=== PATIENT | female | born 1945 | race Caucasian/White ===

== ENCOUNTER → 2018-12-20 11:33 | Outpatient (CLI) | payer MEDICARE, MEDICAID, SELFPAY ==
--- NOTE | 2018-12-20 | DI.US.S_ITS ---
PROCEDURE: US ABD AORTA ANEURYSM SCREEN INDICATIONS: BASELINE SCREENING TECHNIQUE: Real time scanning was performed of the aorta and iliac arteries, with image documentation. COMPARISON: None. FINDINGS: Aorta: Proximal aortic diameter measures 2.4 cm. Mid-aorta measures 1.9 cm. Distal aortic diameter is 1.6 cm. Iliac arteries: Right common iliac artery measures 0.9 cm. Left common iliac artery measures 1.0 cm. IMPRESSION: No abdominal aortic or proximal common iliac artery aneurysm. Dictated by: José Miguel TEMPLE Interpreted: Patricia Ellison MD on 12/20/2018 at 13:11 Approved by: Patricia Ellison M.D. on 12/20/2018 at 16:59
== END ==
PROVIDERS: PCP Nurse Practitioner Family; Visit Provider Nurse Practitioner Family
DX: Z13.6 Encounter for screening for cardiovascular disorders (principal); R29.6 Repeated falls
CPT/HCPCS: 76706; 77080

== ENCOUNTER → 2019-09-30 12:46 | Outpatient (CLI) | payer MEDICARE, MEDICAID, SELFPAY ==
--- NOTE | 2019-09-30 | DI.US.S_ITS ---
PROCEDURE: US PELVIC COMPLETE INDICATIONS: PROLAPSED UTERUS, BLADDER TECHNIQUE: Real-time scanning was performed of the pelvic organs, with image documentation. Additional endovaginal scanning was necessary due to incomplete visualization of the adnexal and endometrial structures by transabdominal scanning. COMPARISON: None. FINDINGS: Transabdominal scanning: Limited scanning through the kidneys shows no hydronephrosis. No pathologic free abdominal or pelvic fluid. Endovaginal scanning: Uterus: Uterus is normal in size at 8.5 x 5.8 x 9.1 cm. The endometrium measures up to 17 mm in combined thickness. There is a bicornuate uterus noted. There is a right anterior intramural fibroid which measures 4.1 x 3.7 x 3.8 cm, a midline anterior/posterior intramural fibroid which measures 2.4 x 2.1 x 2.4 cm, and a right posterior intramural fibroid which measures 3.8 x 3.1 x 3.8 cm. Ovaries: The ovaries are not visualized. IMPRESSION: 1. Fibroid uterus as above. 2. Questionable thickening of the endometrium; however there is marked distortion of the endometrium given the uterine fibroids. If further characterization is warranted, gynecologic protocol MRI could be used. Endometrial thickening can be associated with neoplasm, and cannot be excluded in this case. Further imaging or endometrial biopsy could be considered to further characterize findings. 3. Nonvisualization of the ovaries. Dictated by: Mary Santamaria M.D. on 09/30/2019 at 17:40 Approved by: Mary Santamaria M.D. on 09/30/2019 at 17:46
== END ==
PROVIDERS: PCP Nurse Practitioner Family; Visit Provider Nurse Practitioner Family
DX: N81.4 Uterovaginal prolapse, unspecified (principal); D25.1 Intramural leiomyoma of uterus; Q51.3 Bicornate uterus
CPT/HCPCS: 76830; 76856

== ENCOUNTER 2020-10-03 17:20 | Emergency (ER) | payer MEDICARE, MEDICAID, SELFPAY ==
[2020-10-03 17:27] VITALS: BP 187/88; PULSE 71; RESP 20; TEMP 36.8; O2SAT 98
[2020-10-03 17:39] VITALS: PULSE 78; O2SAT 96
[2020-10-03 18:00] VITALS: BP 129/66; PULSE 73; RESP 16; O2SAT 97
--- NOTE | 2020-10-03 18:12 | ED.EXTPRO ---
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 She states that she was standing at the sink doing dishes when the pain abruptly started. She describes going for a walk earlier in the day and no obvious trauma or incident that set off the pain. She describes no recent fevers, chest pain, dyspnea, coughing, abdominal pain, vomiting, nausea or diarrhea. Review of Systems Review of Systems ROS Unobtainable: All systems reviewed & are unremarkable except as noted in HPI and below Patient History Medical History Protein S deficiency Social History Smoking Status: Never smoker Smoking Status: Never smoker alcohol intake frequency: 0-2 drinks per day Exam Narrative Exam Narrative: General: Alert appropriate in no acute distress Respiratory: Able to speak in full sentences, no obvious respiratory distress Skin: No obvious rashes, warm and dry Neurologic: Grossly intact no obvious asymmetries or abnormalities Psych: appropriate insight and affect, cooperative Spine: No point tenderness along the lumbar spine, no rashes. She is quite tender over the right sacroiliac joint and it completely reproduces her pain when it is palpated. Initial Vital Signs Initial Vital Signs: Vital Signs Temperature 98.3 F 10/03/20 17:27 Pulse Rate 71 10/03/20 17:27 Respiratory Rate 20 10/03/20 17:27 Blood Pressure 187/88 H 10/03/20 17:27 Pulse Oximetry 98 10/03/20 17:27 Course Orders Ordered: Discontinued Medications Acetaminophen (Acetaminophen 325 Mg Tablet) 975 mg PO NOW ONE Stop: 10/03/20 18:36 Last Admin: 10/03/20 18:43 Dose: 975 mg Documented by: MMINOR Vital Signs Vital signs: Vital Signs - 8 hr 10/03/20 17:27 10/03/20 17:39 10/03/20 18:00 Temperature 98.3 F Pulse Rate 71 78 73 Respiratory Rate 20 16 Blood Pressure 187/88 H 129/66 Pulse Oximetry 98 96 97 10/03/20 18:46 Temperature Pulse Rate 74 Respiratory Rate 16 Blood Pressure 194/84 H Pulse Oximetry 98 MDM - Extremity (Nontraumatic) MDM Narrative Medical decision making narrative: 75-year-old woman concerned that she has a a recurrent DVT currently anticoagulated. No lower extremity involvement or edema. Point tenderness at her sacroiliac joint on the right. DVT is less likely. Infection is less likely. She was interested in trying only Tylenol for the pain. Reassurance is given. Encouraged her to follow-up with her primary care physician if symptoms changed. Discharge Plan Departure Patient Disposition: Home Clinical Impression: Sacro-iliac pain Instructions: DI Sacroiliac Joint Dysfunction Activity Restrictions/Additional Instructions: Thank you for coming in today The description of your pain and the tenderness directly over your sacroiliac joint does not sound like a DVT. The fact that your continuing to appropriately take her Xarelto is also quite encouraging that this is not a recurrent DVT. Treating this as an acute strain initially will be your best option. Using Tylenol to control the pain and continuing with gentle exercise including walking makes sense. Frequently when we irritated any type of joint it is worse in the 1st 1-2 days following the injury (even when we can not specifically identify the injury). This means that you may have a bit more pain tomorrow. Ice to the area might be helpful. Please pay attention to that area and if you notice any type of rash developing you need to follow-up with her primary care physician. If you are not feeling like you are beginning to improve by Sunday of this coming week. I would also recommend following up with her primary care provider. I hope you feel better Referrals: Ines Fulton ARNP [Primary Care Provider] -
[2020-10-03] MEDS: ACETAMINOPHEN 325 MG TABLET 975 MG PO (18:43)
[2020-10-03 18:46] VITALS: BP 194/84; PULSE 74; RESP 16; O2SAT 98
== END 2020-10-03 18:51 | disposition home or self-care (01) ==
PROVIDERS: Emergency Provider Emergency Medicine; PCP Nurse Practitioner Family
DX: M53.3 Sacrococcygeal disorders, not elsewhere classified (principal); D68.59 Other primary thrombophilia; I26.99 Other pulmonary embolism without acute cor pulmonale; Z79.01 Long term (current) use of anticoagulants
CPT/HCPCS: 99281; 99282

== ENCOUNTER → 2020-12-08 09:05 | Outpatient (CLI) | payer MEDICARE, MEDICAID, SELFPAY ==
--- NOTE | 2020-12-08 | DI.MG.S_ITS ---
BILATERAL DIGITAL SCREENING MAMMOGRAM 3D/2D WITH CAD WITH AUGMENTATION: 12/08/2020 CLINICAL: Baseline exam. Routine screening. No prior exams were available for comparison. The tissue of both breasts is predominantly fatty. Current study was also evaluated with a Computer Aided Detection (CAD) system. Bilateral breast implants are intact. No significant masses, calcifications, or other findings are seen in either breast. IMPRESSION: NEGATIVE There is no mammographic evidence of malignancy. A 1 year screening mammogram is recommended. This exam was interpreted at Station ID: [id number]. NOTE: For mammograms, a report in lay terms will be sent to the patient. Approximately 15% of breast malignancies will not be visualized mammographically. In the management of a palpable breast mass, a negative mammogram must not discourage biopsy of a clinically suspicious lesion. Electronically Signed By: Doreen lorenzo/janeth:12/08/2020 10:12:44 letter sent: Normal Exam ACR BI-RADS Category 1: Negative [id number]
== END ==
PROVIDERS: PCP Nurse Practitioner Family; Referring Provider Nurse Practitioner Family; Visit Provider Nurse Practitioner Family
DX: Z12.31 Encounter for screening mammogram for malignant neoplasm of breast (principal); Z13.820 Encounter for screening for osteoporosis; M85.851 Other specified disorders of bone density and structure, right thigh; Z78.0 Asymptomatic menopausal state; Z90.722 Acquired absence of ovaries, bilateral
CPT/HCPCS: 77063; 77067; 77080

== ENCOUNTER → 2021-07-07 10:55 | Outpatient (CLI) | payer MEDICARE, MEDICAID, SELFPAY ==
--- NOTE | 2021-07-07 10:56 | DI.CT.S_ITS ---
PROCEDURE: CT CHEST WO CON INDICATIONS: Other nonspecific abnormal finding of lung field TECHNIQUE: Noncontrast 5 mm thick sections acquired from the pulmonary apices to the posterior costophrenic angles. 1 mm lung window, 5 mm thick coronal and sagittal and 7 mm axial MIP reformats were then acquired. For radiation dose reduction, the following was used: automated exposure control, adjustment of mA and/or kV according to patient size. COMPARISON: Outside Facility, RG, XR CXR 2V, 04/22/2021, 8:37. FINDINGS: Image quality: Excellent. Lungs and pleura: The trachea is of normal caliber. Central and peripheral airways are mildly diffusely narrowed and demonstrate mild circumferential bronchial wall thickening. There is narrowing and probable occlusion of numerous extreme peripheral peripheral airways towards the lung bases. There are mild gravitational changes dependently along the fissures of both lungs, and posteriorly in the lower lobes. Mild septal thickening is present at both lung bases. A part solid nodule in the posteromedial left lower lobe measures 0.8 x 0.5 cm, 3/158. No other nodules or masses. No consolidations or pleural effusions. Mediastinum: Heart size is enlarged. Trace pericardial effusion or thickening. No significant coronary artery calcification. No mediastinal adenopathy by size criteria. Thoracic aorta and central pulmonary arteries are normal in size. Trace aortic arch calcification. Esophagus is normal in caliber. No hiatal hernia. Bones and chest wall: Intact breast implants. No suspicious bony lesions. No vertebral body compression fractures. No axillary or supraclavicular adenopathy by size criteria. Thyroid gland is partially imaged and the visible portion is diminutive . Abdomen: Visualized upper abdominal solid organs and bowel loops appear normal in the absence of contrast. IMPRESSION: 1. Peripheral airway narrowing and wall thickening suggesting bronchitis, potentially chronic 2. 8 mm part solid left lung nodule. 6 month follow-up chest CT is recommended for follow-up. 3. Cardiomegaly. Dictated by: Doreen Lang M.D. on 07/07/2021 at 14:37 Approved by: Doreen Lang M.D. on 07/07/2021 at 15:03
== END ==
PROVIDERS: PCP Nurse Practitioner Family; Referring Provider Family Medicine; Visit Provider Family Medicine
DX: R91.8 Other nonspecific abnormal finding of lung field (principal); I51.7 Cardiomegaly
CPT/HCPCS: 71250

== ENCOUNTER 2024-08-16 11:41 | Emergency (ER) | payer MEDICARE, SELFPAY ==
[2024-08-16] VITALS (8 sets, daily range): BP systolic 124–170; BP diastolic 63–81; PULSE 64–98; RESP 16–18; TEMP 36.6; O2SAT 92–98; BMI 27.3
--- NOTE | 2024-08-16 11:48 | EKG_ITS ---
[address] [address] Test Date: 2024-08-16 Pat Name: Miracle Osorio Department: Room: Gender: Female [employer]: ANGIE : [id number] Requested By: Order Number: [id number] Reading MD: Leonardo Ann MD Measurements Intervals [place] Rate: 69 P: 39 IA: 158 QRS: 37 QRSD: 78 T: 48 QT: 390 QTc: 417 Interpretive Statements Normal sinus rhythm with sinus arrhythmia Electronically Signed On 08-17-2024 17:06:14 PST by Leonardo Ann MD
--- NOTE | 2024-08-16 11:52 | DI.RAD.S_ITS ---
PROCEDURE: XR CHEST 1V INDICATIONS: chest pain TECHNIQUE: One view of the chest was acquired. COMPARISON: None. FINDINGS: Surgical changes and devices: None. Lungs and pleura: Minimal left basilar atelectasis and or infiltrate Mediastinum: Mediastinal contours appear normal. Heart size is normal. Bones and chest wall: No suspicious bony lesions. Overlying soft tissues appear unremarkable. IMPRESSION: Minimal left basilar atelectasis and or infiltrate Approved by: Adilson Moreira M.D. on 08/16/2024 at 12:04
[2024-08-16 12:05] LABS: Add Manual Diff / Slide Review NO; Basophils Absolute Auto 100 /uL (0-100); Basophils Percent Auto 1.1 % (0-2); Eosinophils Absolute Auto 200 /uL (0-450); Eosinophils Percent Auto 3.5 % (2-4); Hematocrit 46.3 % (36-46); Hemoglobin 15.3 g/dL (12.0-16.0); Lymphocytes Absolute Auto 1700 /uL (1100-4500); Lymphocytes Percent Auto 24.3 % (25-40); Mean Corpuscular HGB Conc 33.1 % (30-36); Mean Corpuscular Hemoglobin 30.6 PG (26-34); Mean Corpuscular Volume 92.6 fL (80-100); Monocytes Absolute Auto 600 /uL (0-900); Monocytes Percent Auto 8.6 % (3-14); Neutrophils Absolute Auto 4300 /uL (1500-7000); Neutrophils Percent Auto 62.5 % (50-75); Platelet Count 175 X10^3/uL (150-400); Red Cell Distribution Width 13.2 % (11.6-14.8); White Blood Cell Count 6.9 X10^3/uL (4.5-11.0)
--- NOTE | 2024-08-16 12:25 | ED.CHESTPAIN ---
HPI - Chest Pain General Chief Complaint: Chest Pain Stated Complaint: chest pain Time Seen by Provider: 08/16/24 12:15 History of Present Illness HPI narrative: 79-year-old woman on lifetime Xarelto secondary to DVTs and pulmonary emboli with a history of protein S deficiency presents with complaints of chest pain that started last night not associated with activity. She called 911 and was seen by medics on [facility] and told to come to the ER this morning. She presents this morning instructed with no symptoms at this time. She notes that earlier this week she did see Dr. Drew Boo who did initiate a Cardiology referral but that appointment is not until September 16. Patient notes he has been doing quite a bit more lifting twisting and turning and is wondering if this may be musculoskeletal pain. She describes an ache through the central chest, some symptoms up into the left side of her neck and this morning was noticing some tenderness in the left lower posterior ribs. No palpitations, nausea, diaphoresis, abdominal pain, lower extremity edema. Review of Systems Review of Systems Narrative: Pertinent positive and negative findings as per HPI Patient History Medical History Protein S deficiency Social History Smoking Status: Never smoker Smoking Status: Never smoker alcohol intake frequency: 0-2 drinks per day Exam Initial Vital Signs Initial Vital Signs: Vital Signs Pulse Rate 98 H 08/16/24 11:46 Pulse Oximetry 93 08/16/24 11:46 General: Healthy appearing, in no acute distress. Able to give a complete and coherent history. Well-nourished well-developed HEENT: Moist mucous membranes, normal sclera with reactive pupils, Respiratory: Lungs are clear to auscultation, no wheezing no rales no rhonchi. Full and symmetrical air movement Chest: Minor tenderness over left lateral posterior ribs with chest pain reproduced. There was no rash involving area to suggest zoster Cardiac: Regular rate and rhythm no murmurs no bruits Abdomen: Soft, nontender, good bowel tones, no flank pain Skin: Warm and dry, no rashes Neurologic: Grossly neurologically intact with no obvious asymmetries or abnormalities Extremities: No trauma, well perfused Psych: Cooperative, appropriate insight and affect Course Orders Ordered: ED Orders 08/16/24 11:49 Urine Microscopic Stat 08/16/24 11:52 XR chest 1V Stat EKG-12 Lead Stat 08/16/24 11:57 Complete Blood Count AUTO DIFF Stat 08/16/24 12:25 Comprehensive Metabolic Panel Stat Lipase Stat Magnesium Stat NT-proBNP (BNP-Adult 18+) Stat PTT Partial Thromboplastin Terence Stat Prothrombin Time INR Stat Troponin & CK Cardiac Panel Stat Discontinued Medications Aspirin (Aspirin 81 Mg Chew Tab) 324 mg PO NOW ONE Stop: 08/16/24 11:53 Last Admin: 08/16/24 12:35 Dose: Not Given Documented By: HIRA Vital Signs Vital signs: Vital Signs - 8 hr 08/16/24 11:46 08/16/24 11:47 08/16/24 11:47 Temperature Pulse Rate 98 H 81 Respiratory Rate 16 Blood Pressure 169/81 H Pulse Oximetry 93 97 Oxygen Delivery Method 08/16/24 11:48 08/16/24 12:03 08/16/24 12:04 Temperature 98 F Pulse Rate 72 71 Respiratory Rate 16 17 Blood Pressure 169/81 H 170/76 H Pulse Oximetry 97 92 Oxygen Delivery Method Room Air 08/16/24 12:04 08/16/24 12:30 08/16/24 12:30 Temperature Pulse Rate 70 75 Respiratory Rate 18 Blood Pressure 154/74 H Pulse Oximetry 96 94 Oxygen Delivery Method 08/16/24 13:00 08/16/24 13:00 08/16/24 13:51 Temperature Pulse Rate 64 67 Respiratory Rate 18 Blood Pressure 124/63 Pulse Oximetry 96 Oxygen Delivery Method 08/16/24 13:51 Temperature Pulse Rate Respiratory Rate Blood Pressure 165/74 H Pulse Oximetry 98 Oxygen Delivery Method MDM - Chest Pain Lab Data 08/16/24 11:57 08/16/24 12:25 Labs: Lab Results 08/16/24 08/16/24 08/16/24 Range/Units 11:49 11:57 12:25 WBC 6.9 (4.5-11.0) X10^3/uL RBC 5.00 (4.0-5.2) X10^6/uL Hgb 15.3 (12.0-16.0) g/dL Hct 46.3 H (36-46) % MCV 92.6 (80-100) fL MCH 30.6 (26-34) PG MCHC 33.1 (30-36) % RDW 13.2 (11.6-14.8) % Plt Count 175 (150-400) X10^3/uL Neut % (Auto) 62.5 (50-75) % Lymph % (Auto) 24.3 L (25-40) % [place] % (Auto) 8.6 (3-14) % Eos % (Auto) 3.5 (2-4) % Baso % (Auto) 1.1 (0-2) % Neut # (Auto) 4300 (8732-5985) /uL Lymph # (Auto) 1700 (6689-4983) /uL [place] # (Auto) 600 (0-900) /uL Eos # (Auto) 200 (0-450) /uL Baso # (Auto) 100 (0-100) /uL PT 13.9 H (9.4-12.5) SECONDS INR 1.2 (0.9-1.3) APTT 41 H (25.1-36.5) SECONDS Sodium 137 (137-145) mmol/L Potassium 4.4 (3.4-5.1) mmol/L Chloride 104 (98-107) mmol/L Carbon Dioxide 33 H (22-32) mmol/L BUN 21 H (7-17) mg/dL Creatinine 1.07 H (0.52-1.04) mg/dL Estimated GFR 53 L (>60) mL/min BUN/Creatinine Ratio 19.6 (6-22) Glucose 89 (80-110) mg/dL Calcium 10.4 H (8.4-10.2) mg/dL Magnesium 2.1 (1.6-2.3) mg/dL Total Bilirubin 0.6 (0.2-1.3) mg/dL AST 36 (14-36) IU/L ALT 23 (<35) IU/L Alkaline Phosphatase 65 (38-126) U/L Total Creatine Kinase 56 (30-135) U/L Troponin I < 0.012 (0.01-0.034) ng/mL NT-Pro-B Natriuret Pep 172 (<450) pg/mL Total Protein 6.8 (6.3-8.2) g/dL Albumin 4.0 (3.5-5.0) g/dL Globulin 2.8 (1.7-4.1) g/dL Albumin/Globulin Ratio 1.4 (1.0-2.8) Lipase 227 (23-300) U/L Urine RBC 0-1/hpf (0-5/HPF) Urine WBC 0-1/hpf (0-5/HPF) Ur Squamous Epith Cells 0-1 /hpf (0-5/HPF) Urine Bacteria Occasional (0-1) (None) Ur Culture Indicated? Cult not indicated Vol Urine Centrifuged 10ml (spun) Urine Dip Bedside Urine Glucose Negative Bedside Urine Bilirubin - Negative Bedside Urine Ketone - Negative Urine Specific [place] 1.005 Bedside Urine Occult Blood +/- Bedside Urine pH 7.5 Bedside Urine Protein - Negative Bedside Urine Urobilinogen - Negative Bedside Urine Nitrite - Negative Bedside Urine Leukocytes - Negative Esterase MDM Narrative Medical decision making narrative: CC: Left-sided chest pain Complicating co-morbidities: Increased activity this week with more bending and twisting, prior PE/DVT and chronically anticoagulated Data collected from: patient Social determinants of health that may influence the patients condition:lives on [facility] Medical records reviewed: Previous ER notes are reviewed Differential considered: Unstable angina, acute coronary syndrome, musculoskeletal pain, pleurisy, costochondritis Exam documented above, pertinent findings include: Exam is fairly benign. Left-sided chest wall pain is reproducible with palpation along the left posterior ribs without any skin changes or evidence of subcutaneous air, contusion or abrasion Lab Test results independently reviewed as above. Pertinent findings: CBC is unremarkable Coagulation studies were unremarkable Chemistries do not have acute abnormalities. Mild decreased renal function, calcium slightly elevated at 10.4 Troponin is undetectable BNP is low Lipase is not elevated Independently reviewed EKG: Sinus rhythm at a rate of 69. No acute ischemia Imaging studies independently reviewed: Chest x-ray is unremarkable, radiology read suggests minimal left basilar atelectasis or infiltrate which may be secondary to splinting from pain in that area Discussion: 79-year-old woman with intermittent episodes of the left posterior rib pain and some left anterior cardiac pain over the last week. She did see your primary care physician and has been referred to Cardiology for further evaluation. Today's evaluation is reassuring. There was no evidence of recurrent DVT, pneumonia, pneumothorax, acute coronary syndrome, unstable angina, no suggestion of zoster in no trauma to the area. I suspect that this is musculoskeletal pain as it is reproducible, she is anticoagulated I have suggested Tylenol and warm showers or heating pads to the area along with gentle walking throughout the day. Heart rate at time of discharge is 69, sats are 98% blood pressure is appropriate, I do not suspect pulmonary embolism. There was no indication for hospitalization or advanced imaging she is safe for discharge Discharge Plan Departure Patient Disposition: Home Clinical Impression: Rib pain on left side Instructions: DI for Atypical Chest Pain Activity Restrictions/Additional Instructions: Thank you for coming in today I suspect that the pain that you are experiencing in the left side of your chest is musculoskeletal in nature. The fact that I can push on the left back ribs and recreate the pain is actually reassuring. Your workup today shows no evidence of heart attack, pneumonia, recurrent pulmonary embolism, anemia, collapsed lung or alternate explanation that would require hospitalization I would recommend Tylenol to help with the pain, being active, at least taking a couple of laps through your house, heating pad or hot shower can also be helpful with the pain control If you find that you are getting worse or develop any new symptoms, please feel free to return to the emergency department for further evaluation. Referrals: Ines Fulton ARNP [Primary Care Provider] - Stand Alone Forms: Patient Portal/API/Survey
[2024-08-16 12:38] LABS: INR 1.2 (0.9-1.3); Prothrombin Time 13.9 SECONDS (9.4-12.5)
[2024-08-16 12:41] LABS: PTT Partial Thromboplastin Tim 41 SECONDS (25.1-36.5)
[2024-08-16 12:42] LABS: Alanine Aminotransferase 23 IU/L (<35); Albumin Globulin Ratio 1.4 (1.0-2.8); Alkaline Phosphatase 65 U/L (38-126); Aspartate Aminotransferase 36 IU/L (14-36); BUN Creatinine Ratio 19.6 (6-22); Bilirubin Total 0.6 mg/dL (0.2-1.3); Blood Urea Nitrogen 21 mg/dL (7-17); Calcium 10.4 mg/dL (8.4-10.2); Carbon Dioxide 33 mmol/L (22-32); Chloride 104 mmol/L (98-107); Creatine Kinase 56 U/L (30-135); Estimated Glomerular Filt Rate 53 mL/min (>60); Globulin 2.8 g/dL (1.7-4.1); Glucose 89 mg/dL (80-110); HEMOLYSIS < 15 (0-50); Lipase 227 U/L (23-300); Magnesium 2.1 mg/dL (1.6-2.3); Potassium 4.4 mmol/L (3.4-5.1); Sodium 137 mmol/L (137-145); Total Protein 6.8 g/dL (6.3-8.2)
[2024-08-16 12:46] LABS: Bacteria Urine Occasional (0-1); Culture Indicated Urine Cult Not Indicated; RBC Urine 0-1/HPF (0-5/HPF); Squamous Epithelial Cell Urine 0-1 /HPF (0-5/HPF); Urine Volume 10mL (spun); WBC Urine 0-1/HPF (0-5/HPF)
[2024-08-16 12:53] LABS: NT-proBNP (BNP-Adult 18+) 172 pg/mL (<450); Troponin I < 0.012 ng/mL (0.01-0.034)
--- NOTE | 2024-08-16 13:38 | PC.NURSE ---
patient given clear ensure and pb&J sandwich, drank 2 sips of ensure with RN holding cup. [place] placed in patients hand and patient encouraged to eat and drnk. Patient verbalized ok, Returned to patient room and no bites taken from sandwich; Again encouraged patient to eat and drink, Patient states no thanks Im ok. Encouraged patient to eat and drink some please but patient continues to decline PO intake at this time. Drink and sandwhiches remain at bedside.
== END 2024-08-16 14:13 | disposition home or self-care (01) ==
PROVIDERS: Emergency Provider Emergency Medicine; PCP Nurse Practitioner Family
DX: R07.81 Pleurodynia (principal); R07.89 Other chest pain; I49.8 Other specified cardiac arrhythmias
CPT/HCPCS: 36415; 71045; 80053; 81003; 81015; 82550; 83690; 83735; 83880; 84484; 85025; 85610; 85730; 93005; 93010; 99283; 99284

== ENCOUNTER → 2025-01-28 16:34 | Outpatient (CLI) | payer MEDICARE, SELFPAY ==
--- NOTE | 2025-01-28 16:38 | DI.MG.S_ITS ---
MM screening mammo implant BI: 01/28/2025. BI-RADS: 2 CLINICAL: 79-year old female for bilateral screening mammogram. Tyrer-Cuzick lifetime risk of 2.5%. Current reported family history of breast cancer: daughter. The patient has bilateral implants. PRIOR EXAMS 12/08/2020. MAMMOGRAPHY TECHNIQUE: 2D and 3D (tomosynthesis) digital mammographic views obtained, with additional images as needed for full coverage. Current study was also evaluated with a Computer Aided Detection (CAD) system. DENSITY A. The breasts are almost entirely fatty. IMPLANTS Breast implants present. MAMMOGRAPHY FINDINGS Bilateral: There are no suspicious masses, calcifications, or other findings in the breast. IMPRESSION: * No evidence of malignancy with benign findings. RECOMMENDATIONS Bilateral * Annual screening mammography. OVERALL ASSESSMENT CATEGORY BI-RADS-2: Benign. The [employer] recommends annual screening mammography beginning at age 40 for women with average risk of breast cancer. ELECTRONICALLY SIGNED: Joycelyn Lao M.D. on 01/29/2025 at 07:10:00 AM PT Interpreting Station ID: [id number]
== END ==
PROVIDERS: PCP Family Medicine; Referring Provider Family Medicine; Visit Provider Family Medicine
DX: Z12.31 Encounter for screening mammogram for malignant neoplasm of breast (principal); Z80.3 Family history of malignant neoplasm of breast; Z98.82 Breast implant status
CPT/HCPCS: 77063; 77067

== ENCOUNTER → 2025-01-28 17:06 | Outpatient (CLI) | payer MEDICARE, SELFPAY ==
--- NOTE | 2025-01-28 17:07 | DI.MRI.S_ITS ---
PROCEDURE: MR KNEE RT WO CON INDICATIONS: SYNOVIAL CYST TECHNIQUE: Noncontrast sagittal PD fast spin echo and T2 fast spin echo with fat saturation, sagittal 3-D FLASH with fat saturation; coronal T1 spin echo and PD fast spin echo with fat saturation, and axial PD fast spin echo with fat saturation through the knee. COMPARISON: None. FINDINGS: Image quality: Excellent. Cruciate ligaments: Moderate diffuse increased T2 weighted signal and thinning suggests partial tear or injury/strain of the proximal mid and distal aspect of the anterior cruciate ligament with some intact fibers, without complete tear. The posterior cruciate ligament is intact. Menisci: Abnormal appearance of the posterior horn and midbody of the medial meniscus with frayed edge and increased T2 weighted signal which appears to exit to the inferior surface suspicious for horizontal tear. The medial meniscus is displaced medially on the coronal images. Mild signal changes and blunting of the apex of the anterior horn of the of the lateral meniscus into the meniscal root ligament but without focal tear exiting to a surface. Posterior meniscocapsular separation medially and laterally. Medial structures: Mild increased T2 weighted signal and thickening of the distal semimembranosus tendon, tendinopathy. The medial collateral ligament appears intact. Visualized portions of the pes anserinus tendons appear normal. No abnormal bursal fluid. Lateral structures: Mild increased T2 weighted signal and thickening of the proximal attachment of the lateral collateral ligament as well as the distal popliteus tendon attachment. The long and short heads of the biceps femoris tendon appear intact. Iliotibial band appears normal. Anterior structures: Mild nonspecific prepatellar subcutaneous tissue edema. The quadriceps and patellar tendons appear intact. Patellar alignment is normal. No femoral trochlear dysplasia or ventral trochlear prominence. Bones and cartilage: Diffuse cartilaginous thinning with near [id number] configuration in the patellofemoral compartment predominantly the medial patellar facet. Similarly moderate to severe diffuse cartilaginous thinning with near bone on bone in the medial compartment with osteophytes Kellgren Delfin grade 3-4. Mild degenerative changes in the lateral compartment. Joint space: Mild knee joint effusion. No significant popliteal cyst. 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 Mild signal changes in the anterior horn of the lateral meniscus. Injury/strain some of which may be chronic anterior cruciate ligament without complete tear. Mild tendinopathy proximal lateral collateral ligament and popliteus tendon. Degenerative changes in the patellofemoral and medial compartment as discussed above. Mild knee joint effusion. Dictated by: Umer Tovar M.D. on 01/29/2025 at 13:40 Approved by: Umer Tovar M.D. on 01/29/2025 at 14:28
== END ==
PROVIDERS: PCP Family Medicine; Referring Provider Orthopaedic Surgery; Visit Provider Orthopaedic Surgery
DX: M71.21 Synovial cyst of popliteal space [Baker], right knee (principal); S83.241A Other tear of medial meniscus, current injury, right knee, initial encounter; S83.511A Sprain of anterior cruciate ligament of right knee, initial encounter; M25.461 Effusion, right knee; M17.11 Unilateral primary osteoarthritis, right knee
CPT/HCPCS: 73721

== ENCOUNTER → 2025-02-06 11:50 | Outpatient (CLI) | payer MEDICARE, SELFPAY ==
--- NOTE | 2025-02-06 11:53 | DI.MRI.S_ITS ---
PROCEDURE: MR HEAD/BRAIN WO CON INDICATIONS: CERVICOGENIC HEADACHE TECHNIQUE: Non-contrast axial T1 spin echo, axial T2 fast spin echo, sagittal and axial FLAIR, coronal T2 fast spin echo, axial gradient echo, axial diffusion and ADC through the brain. COMPARISON: None. FINDINGS: Image quality: Excellent. CSF spaces: Ventricles appear symmetric in size and shape. Basal cisterns are patent. No extra-axial fluid collections. Brain: No intracranial bleeds or mass effects. There is cerebral volume loss for age. There are periventricular and deep white matter chronic small vessel ischemic changes. Brainstem appears normal. Diffusion-weighted images show no acute infarct. No chronic ischemic insults. Normal intravascular flow voids are present. Skull and face: Calvarial bone marrow is normal in signal. Bilateral lens replacements. Otherwise, the orbits are unremarkable. Sinuses: Left maxillary sinus mucous retention cyst. Sinuses and mastoids are otherwise clear. IMPRESSION: No acute intracranial abnormalities. No cause for patient's pain is identified. Mild age-related global volume loss and chronic microvascular ischemic changes. Dictated by: Korey Patrick M.D. on 02/06/2025 at 13:13 Approved by: Korey Patrick M.D. on 02/06/2025 at 13:15
== END ==
PROVIDERS: PCP Family Medicine; Referring Provider Family Medicine; Visit Provider Nurse Practitioner
DX: G44.86 Cervicogenic headache (principal); G44.219 Episodic tension-type headache, not intractable
CPT/HCPCS: 70551